=== PATIENT | female | born 1955 | race African-American/Black ===

== ENCOUNTER 2019-02-16 16:26 | Emergency (ER) | payer SELFPAY ==
[~2019-02-16] VITALS: Ht 165.1 cm; Wt 68.0 kg
[2019-02-16 17:57] VITALS: BP 168/77
[2019-02-16] MEDS ORDERED: HYDROCODONE/ACETAMINOPHEN 5/325MG TABLET PO STA (18:33)
== END 2019-02-16 18:43 | disposition left against medical advice (07) ==
LOC: ER 16:26
DX: S13.4XXA Sprain of ligaments of cervical spine, initial encounter (principal); M79.601 Pain in right arm; V49.49XA Driver injured in collision with other motor vehicles in traffic accident, initial encounter; Y93.89 Activity, other specified; Y92.89 Other specified places as the place of occurrence of the external cause; Y99.8 Other external cause status; I10 Essential (primary) hypertension; Z86.73 Personal history of transient ischemic attack (TIA), and cerebral infarction without residual deficits; Z88.0 Allergy status to penicillin
CPT/HCPCS: 93005; 99283

== ENCOUNTER 2020-05-03 20:28 | Emergency (ER) | payer BC, OTHER ==
[~2020-05-03] VITALS: Ht 162.6 cm; Wt 67.8 kg
[2020-05-03] MEDS ORDERED: TETANUS, DIPHTHERIA, PERTUSSIS VAC/PF 0.5ML (>7YR OLD) IM ONE (21:45)
[2020-05-03] MEDS ORDERED: BACITRACIN ZINC OINT UDPKT TOP ONE (21:45)
[2020-05-03] MEDS ORDERED: LIDOCAINE 5% PATCH TOP SCH (22:45)
[2020-05-03] MEDS ORDERED: ACETAMINOPHEN 325MG TABLET PO ONE (22:45)
[2020-05-03 22:56] LABS: BASOPHILS % 0.9 % (0.0-2.0); HEMATOCRIT. 38.7 % (36.0-48.0); HEMOGLOBIN. 12.9 g/dL (12.0-16.0); LYMPHOCYTES % 42.1 % (20.0-50.0); MEAN CORPUSCULAR HEMOGLOBIN 30.7 pg (28.0-32.0); MEAN CORPUSCULAR VOLUME 92.2 fL (81.0-99.0); MONOCYTES % 8.2 % (2.0-8.0); NEUTROPHILS % 48.8 % (40.0-76.0); PLATELET 171 x1000/uL (130-400); RED BLOOD CELL COUNT 4.19 mill/uL (4.2-5.4); RED CELL DISTRIBUTION WIDTH 13.5 % (11.6-14.6)
[2020-05-03 23:03] LABS: CHLORIDE 102 mEq/L (98-107)
[2020-05-03 23:04] LABS: PROTHROMBIN TIME 10.3 sec (9.6-11.0)
[2020-05-03 23:48] LABS: CLARITY URINE CLEAR (CLEAR); COLOR URINE YELLOW (YELLOW); KETONES URINE NEGATIVE (NEGATIVE); LEUKOCYTE ESTERASE URINE NEGATIVE (NEGATIVE); NITRITE URINE NEGATIVE (NEGATIVE); OCCULT BLOOD URINE NEGATIVE (NEGATIVE); PROTEIN URINE NEGATIVE (NEGATIVE); SPECIFIC GRAVITY URINE 1.009 (1.005-1.030); UROBILINOGEN URINE 0.2 E.U./dL (0.2-1.0)
[2020-05-04] LABS: *AMPHETAMINES SCREEN URINE NEGATIVE (NEGATIVE); *BARBITURATES SCREEN URINE NEGATIVE (NEGATIVE); *BENZODIAZEPINES SCREEN URINE NEGATIVE (NEGATIVE); *COCAINE SCREEN URINE NEGATIVE (NEGATIVE); CANNABINOID URINE SCREEN NEGATIVE (NEGATIVE); METHADONE URINE SCREEN NEGATIVE (NEGATIVE); OPIATES URINE SCREEN PRESUMTIVE POSITIVE (NEGATIVE); PHENCYCLIDINE URINE SCREEN NEGATIVE (NEGATIVE)
[2020-05-04] MEDS ORDERED: LIDO700A15 TP (01:39)
[2020-05-04] MEDS ORDERED: METH-612 MT (01:39)
[2020-05-04 02:02] VITALS: BP 132/75
== END 2020-05-04 02:03 | disposition home or self-care (01) ==
LOC: ER 20:28
DX: S00.81XA Abrasion of other part of head, initial encounter (principal); Z88.0 Allergy status to penicillin; Z98.890 Other specified postprocedural states; Z90.710 Acquired absence of both cervix and uterus; Z00.00 Encounter for general adult medical examination without abnormal findings; W18.30XA Fall on same level, unspecified, initial encounter; Y93.89 Activity, other specified; Y92.89 Other specified places as the place of occurrence of the external cause; Y99.8 Other external cause status
CPT/HCPCS: 36415; 71045; 73560; 80053; 80305; 81003; 85025; 90471; 90715; 93005; 99285